=== PATIENT | male | born 1960 | race Hispanic/Latino ===

== ENCOUNTER 2017-12-27 09:19 | Outpatient (CLI) | payer OTHER ==
[2017-12-27 09:37] LABS: Hematocrit 32.3 % (35.5-45.6); Hemoglobin 11.1 gm/dl (11.8-15.2); Mean Corpuscular HGB Conc 34 % (32-34); Mean Corpuscular Hemoglobin 36 pg (28-32); Mean Corpuscular Volume 106 fl (84-94); Platelet Count 49 K/mm3 (140-440); Red Blood Count 3.06 M/mm3 (3.65-5.03); Red Cell Distribution Width 15.9 % (13.2-15.2)
[2017-12-27 09:52] LABS: Alanine Aminotransferase 24 units/L (7-56); BUN/Creatinine Ratio 13; Blood Urea Nitrogen 8 mg/dL (9-20); Calcium 8.5 mg/dL (8.4-10.2); Hemolysis Index 18
--- NOTE | 2017-12-27 11:09 | Ultrasound Report ---
ULTRASOUND ABDOMEN LIMITED: TECHNIQUE: Transabdominal ultrasound with color Doppler interrogation. HISTORY: right upper quadrant abdominal pain. COMPARISON: none. FINDINGS: LIVER: The liver appears normal size. Subtle surface nodularity is suggested on some of the images which could represent early cirrhotic changes. A 4.2 x 3.7 x 3.8 cm hypodense mass is identified in the left hepatic lobe. The remainder of the liver is unremarkable. A filling defect is identified in the left hepatic vein which demonstrates minimal internal blood flow on color Doppler interrogation. BILIARY SYSTEM: There is a mild degree of sludge in the gallbladder. The gallbladder appears borderline to mildly dilated. The CBD is also mildly dilated measuring 8.5 mm. There is mild gallbladder wall thickening measuring 4.4 mm. PANCREAS: Obscured by bowel gas. RIGHT KIDNEY: Normal. PROXIMAL AORTA: Normal. ASCITES: Trace perihepatic ascites. IMPRESSION: Sludge in the gallbladder. The gallbladder and common bile duct appear mildly dilated as described above. Choledocholithiasis or sludge in the gallbladder is difficult to exclude. Consider MRCP. Subtle cirrhotic changes are suspected in the liver. An approximate 4 cm hypodense mass is identified in the left hepatic lobe. Primary liver malignancy cannot be excluded. There is also a filling defect identified in the left hepatic vein which probably represents tumor thrombus. Further evaluation with CT with contrast 4 phase liver protocol is recommended.
== END 2017-12-27 09:20 | disposition home or self-care (01) ==
LOC: US 09:19
PROVIDERS: ATTEND Surgery
DX: K82.8 Other specified diseases of gallbladder (principal); R10.11 Right upper quadrant pain; R79.89 Other specified abnormal findings of blood chemistry
CPT/HCPCS: 36415; 76705; 80053; 83036; 85027

== ENCOUNTER 2018-01-12 09:24 | Outpatient (CLI) | payer OTHER ==
[2018-01-12 09:42] LABS: Hematocrit 33.7 % (35.5-45.6); Hemoglobin 11.2 gm/dl (11.8-15.2); Mean Corpuscular HGB Conc 33 % (32-34); Mean Corpuscular Hemoglobin 36 pg (28-32); Mean Corpuscular Volume 109 fl (84-94)
[2018-01-12 09:43] LABS: Platelet Count 66 K/mm3 (140-440)
[2018-01-12 09:57] LABS: Alanine Aminotransferase 22 units/L (7-56); BUN/Creatinine Ratio 15; Blood Urea Nitrogen 9 mg/dL (9-20); Calcium 8.3 mg/dL (8.4-10.2); Hemolysis Index 12
--- NOTE | 2018-01-12 20:03 | Cat Scan Report ---
FINAL REPORT PROCEDURE: CT ABDOMEN PELVIS W CON TECHNIQUE: Computerized axial tomography of the abdomen and pelvis was performed after the IV injection of iodinated nonionic contrast. Oral contrast. DLP 2-3782.44 mGy-cm. HISTORY: Right upper quadrant pain. COMPARISON: Ultrasound dated 12/27/2017. FINDINGS: Visualized lower thorax: Moderate coronary artery disease. Mild cardiomegaly. 5.3 mm left lower lobe pulmonary nodule (image 68 series 3). Bulla in the right medial right lower lobe. Liver: The liver is enlarged, heterogeneous in attenuation, and has lobulated borders. Caudate hypertrophy. There are several masses in the liver, the majority with ill borders, peripheral mild enhancement and more central low attenuation. In the posterior right lobe of the liver there is a 5.6 by 4.5 by 5 cm mass. Second lesion in the right lobe of the liver measures 3.8 by 2.9 by 4 cm. 5.5 by 5.5 by 5.2 cm mass near the falciform ligament. Other similar masses seen throughout the liver. Spleen: Splenomegaly measuring 16 cm.. Gallbladder and biliary system: Moderately distended gallbladder with pericholecystic fluid. Common bile duct is dilated to 8.7 mm. Pancreas: Normal. Adrenals: Normal. Kidneys: Normal. GI tract: Small hiatal hernia. Normal caliber appendix, although there is small amount of fluid and stranding about the appendix. Colonic diverticulosis.. Lymph nodes and mesentery: Mild diffuse mesenteric stranding. Periesophageal, periportal, retroperitoneal, and small scattered mesenteric lymph nodes.. Vasculature: Short segment infrarenal abdominal aortic aneurysm measuring 3.7 cm and 5.9 cm craniocaudad. [id number] stenosis of the proximal SMA. There is low-attenuation about the left portal vein, less apparent on delayed images. Possible mild mass effect in this area. The intrahepatic IVC and veins appear ill-defined/narrowed, with limited visualization. Bladder: Normal. Reproductive organs: There is a fat filled left inguinal hernia with enhancing enlarged varices, possibly off the gonadal vein. Small amount of fluid in the left inguinal hernia. Peritoneum: Moderate ascites. Musculoskeletal structures: L4-5 and L5-S1 disc bulges. Mild osteopenia. Multilevel osteophytes. Multilevel subtle endplate depression likely Schmorl's nodes.. Other: Fat filled umbilical hernia. IMPRESSION: Liver is enlarged, heterogeneous in attenuation, and has lobulated borders. Caudate hypertrophy. Several mass lesions in the liver. Findings concerning for underlying cirrhotic morphology with other multifocal HCC or metastatic disease. Area of low attenuation about the left portal vein, with possible mild mass effect in this region. Although could be external to the portal vein and less apparent on delayed images, cannot exclude portal vein thrombus, including tumor thrombus considering above described findings. The intrahepatic IVC and veins appear narrowed/ill-defined. Consider Budd-Chiari physiology. Recommend further evaluation including color Doppler ultrasound and/or CTA if there is continued clinical concern. Splenomegaly, mesenteric stranding, and ascites with scattered lymph nodes, also likely related to cirrhotic physiology/portal hypertension. Cannot exclude lymph nodes are neoplastic. Moderately distended gallbladder and common bile duct with pericholecystic fluid. May be secondary to above-described findings, consider nuclear medicine HIDA scan if there is concern for primary biliary pathology. Coronary artery disease. Cardiomegaly. Left lower lobe pulmonary nodule. Considering above described findings, difficult to exclude metastatic lesion. Consider chest CT. Small hiatal hernia. Fluid and stranding surround probable normal caliber appendix, although limited evaluation. Findings likely related to above-described pathology rather than primary appendiceal pathology. Consider further evaluation and followup if there is continued clinical concern for appendiceal pathology. Diverticulosis. Infrarenal abdominal aortic aneurysm. [id number] stenosis of the proximal SMA. Fat filled left inguinal hernia with enhancing varices, possibly off the gonadal vein. Small amount of fluid in left inguinal hernia. Fat filled umbilical hernia
== END 2018-01-12 09:25 | disposition home or self-care (01) ==
LOC: CT 09:24
PROVIDERS: ATTEND Surgery
DX: K57.90 Diverticulosis of intestine, part unspecified, without perforation or abscess without bleeding (principal); K42.9 Umbilical hernia without obstruction or gangrene; K83.9 Disease of biliary tract, unspecified; I71.4 Abdominal aortic aneurysm, without rupture; I35.0 Nonrheumatic aortic (valve) stenosis; I25.10 Atherosclerotic heart disease of native coronary artery without angina pectoris; I51.7 Cardiomegaly
CPT/HCPCS: 36415; 74177; 80053; 83036; 85027; Q9967